=== PATIENT | female | born 1970 | race Caucasian/White ===

== ENCOUNTER 2017-07-28 18:03 | Emergency (ER) | payer MEDICAID ==
[2017-07-28 18:09] VITALS: BMI 30.9
[2017-07-28 18:11] VITALS: O2SAT 98
--- NOTE | 2017-07-28 18:45 | C.PDOC ---
History Of Present Illness 47-year-old female, presents to the emergency department accompanied by with complaints of two-month duration of productive cough and pleuritic pain. Patient seen by PMD in office and prescribed medication for her cough, which she has been taking with minimal relief. Denies fevers, rashes, recent travel, headache, dizziness, abdominal pain, vomiting or diarrhea. Time Seen by Provider: 07/28/17 18:24 Chief Complaint (Nursing): Cough, Cold, Congestion History Per: Patient History/Exam Limitations: no limitations Onset/Duration Of Symptoms: Days Current Symptoms Are (Timing): Still Present Past Medical History Reviewed: Historical Data, Nursing Documentation, Vital Signs Vital Signs: Last Vital Signs Temp 97.9 F 07/28/17 19:18 Pulse 78 07/28/17 19:18 Resp 20 07/28/17 19:18 BP 138/83 07/28/17 19:18 Pulse Ox 98 07/28/17 19:18 - Medical History PMH: Gall Bladder Disease (cancer), Malignancy (GB) Surgical History: Cholecystectomy Family History: States: No Known Family Hx - Social History Hx Alcohol Use: No Hx Substance Use: No - Immunization History Hx Tetanus Toxoid Vaccination: No Hx Influenza Vaccination: No Hx Pneumococcal Vaccination: No Review Of Systems Constitutional: Negative for: Fever Cardiovascular: Negative for: Chest Pain Respiratory: Positive for: Cough, Pleuritic Pain, Sputum. Negative for: Shortness of Breath, Hemoptysis Gastrointestinal: Negative for: Vomiting Musculoskeletal: Negative for: Back Pain Skin: Negative for: Rash Neurological: Negative for: Weakness, Numbness, Headache, Dizziness Physical Exam - Physical Exam Appears: Well, Non-toxic, No Acute Distress Skin: Normal Color, Warm, Dry, No Rash Head: Atraumatic, Normacephalic Eye(s): bilateral: Normal Inspection, EOMI Ear(s): Bilateral: Normal (no erythema) Nose: Normal Oral Mucosa: Moist Lips: Normal Appearing Throat: Normal, No Erythema Neck: Normal ROM, Trachea Midline, Supple Cardiovascular: Rhythm Regular, No Murmur Respiratory: Decreased Breath Sounds, No Accessory Muscle Use, No Rales, No Rhonchi, No Wheezing Back: Normal Inspection, No Vertebral Tenderness Extremity: Normal ROM Neurological/Psych: Oriented x3, Normal Speech Gait: Steady ED Course And Treatment ECG: Interpreted By Me, Viewed By Me ECG Rhythm: Sinus Rhythm ECG Interpretation: No Acute Changes Rate From EC O2 Sat by Pulse Oximetry: 98 (room air) Pulse Ox Interpretation: Normal - Radiology CXR: Interpreted by Me, Viewed By Me CXR Interpretation: Yes: No Acute Disease, Heart Size. No: Infiltrates Medical Decision Making Medical Decision Making: Plan: Chest X-Ray Progress: CXR reviewed showing no infiltrates, pleural effusion or pneumothorax Re-Eval: Patient had no fever or signs of respiratory distress. Lungs clear bilaterally. Will give Rx. Patient advised to follow up with PCP. Disposition Counseled Patient/Family Regarding: Diagnosis, Need For Followup, Rx Given - Disposition Referrals: Carissa Yip MD [Staff Provider] - Disposition: HOME/ ROUTINE Disposition Time: 19:07 Condition: STABLE Additional Instructions: Follow up with your primary medical doctor for further evaluation. Take medications as prescribed. Return to the emergency department at any time if symptoms persist or worsen. Prescriptions: Benzonatate [Tessalon Perles] 100 mg PO TID #30 sgl levoFLOXacin [Levaquin] 750 mg PO DAILY #7 tab Instructions: Chronic Bronchitis Forms: [employer] (Yoruba) - POA Present On Arrival: None - Clinical Impression Clinical Impression: Bronchitis - Scribe Statement The provider has reviewed the documentation as recorded by the Scribe (Roxie Negron) All medical record entries made by the Scribe were at my direction and personally dictated by me. I have reviewed the chart and agree that the record accurately reflects my personal performance of the history, physical exam, medical decision making, and the department course for this patient. I have also personally directed, reviewed, and agree with the discharge instructions and disposition.
[2017-07-28 19:19] VITALS: BP 138/83; PULSE 78; RESP 20; TEMP 97.9
--- NOTE | 2017-07-29 08:26 | RAD ---
HISTORY: cough COMPARISON: Chest radiograph dated 04/01/2015. TECHNIQUE: Chest PA and lateral FINDINGS: LUNGS: Biapical scarring. No active pulmonary disease. PLEURA: No significant pleural effusion identified. No pneumothorax apparent. CARDIOVASCULAR: Normal. OSSEOUS STRUCTURES: No significant abnormalities. VISUALIZED UPPER ABDOMEN: Normal. OTHER FINDINGS: Left subclavian access chest port no longer present. IMPRESSION: No active disease.
== END 2017-07-28 19:33 | disposition home or self-care (01) ==
LOC: C.ER 18:03
DX: J40 Bronchitis, not specified as acute or chronic (principal)

== ENCOUNTER 2018-07-19 07:18 | Emergency (ER) | payer MEDICAID ==
[2018-07-19 07:18] VITALS: BMI 30.9
[2018-07-19 07:31] VITALS: O2SAT 97
--- NOTE | 2018-07-19 07:53 | C.PDOC ---
History Of Present Illness 48 y/o female pt with hx of breast cancer, completed treatment 2017 presents to the ER c/o new onset of vertigo-like dizziness since 3:00 AM today. Associated sx includes dizziness worse with movement and nausea. Pt denies recent URI and other associated symptoms. NEW ONSET VERTIGO-LIKE DIZZY SINCE 299. WORSE W POSITION CHANGE, MOVEMENT. +NAUSEA. DENIES RECENT URI. HO BREAST CA, COMPLETED TX 2016. DENIES OTHER ASSOC SX EXAM MILD DIST HEENT NO NYSTAGMUS, INDUCIBLE VERTIGO W LAT GAZE. SINUS, NOSE CLEAR NEURO NO FOCAL DEF REMAINDER NEG Time Seen by Provider: 07/19/18 07:38 Chief Complaint (Nursing): Dizziness/Lightheaded History Per: Patient History/Exam Limitations: no limitations Onset/Duration Of Symptoms: Hrs Current Symptoms Are (Timing): Still Present Past Medical History Reviewed: Historical Data, Nursing Documentation, Vital Signs Vital Signs: Last Vital Signs Temp 97.6 F 07/19/18 07:24 Pulse 73 07/19/18 07:24 Resp 17 07/19/18 07:24 BP 132/84 07/19/18 07:24 Pulse Ox 97 07/19/18 07:24 - Medical History PMH: Gall Bladder Disease (cancer), Malignancy (GB) Surgical History: Cholecystectomy Family History: States: Unknown Family Hx - Social History Hx Alcohol Use: No Hx Substance Use: No - Immunization History Hx Tetanus Toxoid Vaccination: No Hx Influenza Vaccination: No Hx Pneumococcal Vaccination: No Review Of Systems Except As Marked, All Systems Reviewed And Found Negative. Constitutional: Negative for: Fever, Chills Cardiovascular: Negative for: Chest Pain Respiratory: Negative for: Cough, Shortness of Breath Gastrointestinal: Positive for: Nausea. Negative for: Vomiting Musculoskeletal: Negative for: Neck Pain Neurological: Positive for: Dizziness (worse with movement ) Physical Exam - Physical Exam Appears: Non-toxic, In Acute Distress (mild ) Skin: Warm, Dry Head: Atraumatic, Normacephalic, Other (inducible vertigo with lateral gazel; no nystagmus) Eye(s): bilateral: Normal Inspection, EOMI Nose: Normal Oral Mucosa: Moist Throat: Normal Cardiovascular: Rhythm Regular Respiratory: Other (NARD) Extremity: Normal ROM (x4) Neurological/Psych: Oriented x3, Normal Speech, Other (no focal deficit ) ED Course And Treatment - Laboratory Results Result Diagrams: 07/19/18 08:23 07/19/18 08:23 ECG: Interpreted By Me, Viewed By Me ECG Rhythm: Sinus Rhythm ECG Interpretation: Normal Rate From EC O2 Sat by Pulse Oximetry: 97 (RA) Pulse Ox Interpretation: Normal - Other Rad chest X-Ray: Read By Radiologist Interpretation: Accession No. : [id number]. Patient Name / ID : CASEY LIU / [id number]. Exam Date : 07/19/2018 08:35:33 ( Approved ). Study Comment : Sex / Age : F / 48Y. Creator : Megan Tobar MD. Dictator : Megan Tobar MD. Boring Machine Feeder : Ophthalmologist : Megan Tobar MD. Approver2 : Report Date : 07/19/2018 08:54:03. My Comment : . Date of service: 07/19/2018. PROCEDURE: CHEST RADIOGRAPH, 1 VIEW. HISTORY: DIZZY, HO PRIOR BREAST CA. COMPARISON: None available. FINDINGS: LUNGS: The lungs are well inflated and clear. There are small calcified granulomas in the upper lobes. PLEURA: No pneumothorax or pleural effusion. CARDIOVASCULAR: The heart is normal in size. No aortic atherosclerotic calcifications present. OSSEOUS STRUCTURES: Within normal limits for the patient's age. VISUALIZED UPPER ABDOMEN: Normal. OTHER FINDINGS: None. IMPRESSION: No acute findings. - CT Scan/US head CT Other Rad Studies (CT/US): Read By Radiologist, Radiology Report Reviewed CT/US Interpretation: Accession No. : [id number]. Patient Name / ID : CASEY LIU / [id number]. Exam Date : 07/19/2018 09:26:49 ( Approved ). Study Comment : Sex / Age : F / 48Y. Creator : Flory Benito. Dictator : aMdai Balbuena MD. Boring Machine Feeder : Ophthalmologist : Madai Balbuena MD. Approver2 : Report Date : 07/19/2018 09:38:08. My Comment : . Date of service: 07/19/2018. PROCEDURE: CT HEAD WITHOUT CONTRAST. HISTORY: VERTIGO, HO BREAST CA. COMPARISON: None available. TECHNIQUE: Axial computed tomography images were obtained through the head/brain without intravenous contrast. Radiation dose: Total exam DLP = 1113.9 mGy-cm. This CT exam was performed using one or more of the following dose reduction techniques: Automated exposure control, adjustment of the mA and/or kV according to patient size, and/or use of iterative reconstruction technique. FINDINGS: HEMORRHAGE: No intracranial hemorrhage. BRAIN: No mass effect or edema. No atrophy or chronic microva scular ischemic changes.Please note that MRI with diffusion imaging is more sensitive in the detection of acute ischemic event. VENTRICLES: No hydrocephalus. CALVARIUM: Unremarkable. PARANASAL SINUSES: Unremarkable as visualized. No significant inflammatory changes. MASTOID AIR CELLS: Unrema rkable as visualized. No inflammatory changes. OTHER FINDINGS: None. IMPRESSION: No acute intracranial pathology identified. If examination obtained for clinical concern for intracranial metastases, MRI brain without and with IV contrast recommended. Progress Note: Impression: vertigo. Plans: -- chem labs. -- blood work. -- CT head. -- CXR. -- Antivert. -- Zofran Reevaluation Time: 10:01 Reassessment Condition: Improved (STEADY GAIT, FEELS BETTER S/P MECLIZINE) Disposition Counseled Patient/Family Regarding: Studies Performed, Diagnosis, Need For Followup, Rx Given - Disposition Referrals: YOUR,PMD [Other] Disposition: HOME/ ROUTINE Disposition Time: 10:01 Condition: IMPROVED Prescriptions: Meclizine [Antivert] 50 mg PO TID PRN #21 tab PRN Reason: Dizziness Ondansetron ODT [Zofran ODT] 4 mg PO TID PRN #12 odt PRN Reason: Nausea/Vomiting Instructions: Vertigo (a Type of Dizziness) (DC) Forms: [employer] (Maltese) - Clinical Impression Clinical Impression: Vertigo - Scribe Statement The provider has reviewed the documentation as recorded by the [place] Do Provider Attestation: All medical record entries made by the Scribe were at my direction and personally dictated by me. I have reviewed the chart and agree that the record accurately reflects my personal performance of the history, physical exam, medical decision making, and the department course for this patient. I have also personally directed, reviewed, and agree with the discharge instructions and disposition.
[2018-07-19 08:29] LABS: BASO % 0.3 % (0.0-2.0); EOS # 0.1 K/uL (0.0-0.7); EOS % 1.1 % (0.0-4.0); HEMOGLOBIN 14.1 g/dL (11.0-16.0); LYMPH # 1.7 K/uL (1.0-4.3); LYMPH % 15.4 % (20.0-40.0); MEAN CELL VOLUME 81.7 fL (81.0-99.0); MEAN CORPUSCULAR HEMOGLOBIN 27.8 pg (27.0-31.0); MEAN CORPUSCULAR HGB CONC 34.1 g/dL (33.0-37.0); MEAN PLATELET VOLUME 7.9 fL (7.2-11.7); MONO # 0.5 K/uL (0.0-0.8); MONO % 4.5 % (0.0-10.0); NEUT # 8.8 K/uL (1.8-7.0); NEUT % 78.7 % (50.0-75.0); RBC 5.09 Mil/uL (3.80-5.20); RED CELL DISTRIBUTION WIDTH 13.2 % (11.5-14.5); WHITE BLOOD COUNT 11.1 K/uL (4.8-10.8)
[2018-07-19 08:39] LABS: BLOOD UREA NITROGEN 13 mg/dL (7-17); CALCIUM 8.9 mg/dl (8.6-10.4); GFR NON-AFRICAN AMERICAN > 60
--- NOTE | 2018-07-19 08:57 | RAD ---
Date of service: 07/19/2018 PROCEDURE: CHEST RADIOGRAPH, 1 VIEW HISTORY: DIZZY, HO PRIOR BREAST CA COMPARISON: None available. FINDINGS: LUNGS: The lungs are well inflated and clear. There are small calcified granulomas in the upper lobes. PLEURA: No pneumothorax or pleural effusion. CARDIOVASCULAR: The heart is normal in size. No aortic atherosclerotic calcifications present. OSSEOUS STRUCTURES: Within normal limits for the patient's age. VISUALIZED UPPER ABDOMEN: Normal. OTHER FINDINGS: None. IMPRESSION: No acute findings.
--- NOTE | 2018-07-19 09:54 | CT ---
Date of service: 07/19/2018 PROCEDURE: CT HEAD WITHOUT CONTRAST. HISTORY: VERTIGO, HO BREAST CA COMPARISON: None available. TECHNIQUE: Axial computed tomography images were obtained through the head/brain without intravenous contrast. Radiation dose: Total exam DLP = 1113.9 mGy-cm. This CT exam was performed using one or more of the following dose reduction techniques: Automated exposure control, adjustment of the mA and/or kV according to patient size, and/or use of iterative reconstruction technique. FINDINGS: HEMORRHAGE: No intracranial hemorrhage. BRAIN: No mass effect or edema. No atrophy or chronic microvascular ischemic changes.Please note that MRI with diffusion imaging is more sensitive in the detection of acute ischemic event. VENTRICLES: No hydrocephalus. CALVARIUM: Unremarkable. PARANASAL SINUSES: Unremarkable as visualized. No significant inflammatory changes. MASTOID AIR CELLS: Unremarkable as visualized. No inflammatory changes. OTHER FINDINGS: None. IMPRESSION: No acute intracranial pathology identified. If examination obtained for clinical concern for intracranial metastases, MRI brain without and with IV contrast recommended.
[2018-07-19 10:10] VITALS: BP 130/74; PULSE 67; RESP 18; TEMP 98.4
--- NOTE | 2018-07-20 20:06 | CARD ---
APPROVED REPORT Date of service: 07/19/2018 EKG Measurement Heart [id number] <Conclusion> Normal sinus rhythm Normal ECG
== END 2018-07-19 10:18 | disposition home or self-care (01) ==
LOC: C.ER 07:18
DX: R42 Dizziness and giddiness (principal)
CPT/HCPCS: 70450; 71045; 80048; 82948; 85025; 93005; 96374; 99285; J2405

== ENCOUNTER 2018-07-25 10:51 | Outpatient (CLI) | payer MEDICAID | END 2018-07-25 10:52 | disposition home or self-care (01) | LOC: C.LAB 10:51 ==

== ENCOUNTER 2018-07-31 09:49 | Outpatient (CLI) | payer MEDICAID | END 2018-07-31 09:50 | disposition home or self-care (01) | LOC: C.CTH 09:49 ==